=== PATIENT | female | born 1990 | race American Indian/Alaskan Native ===

== ENCOUNTER 2018-04-23 16:55 | Emergency (ER) | payer BC, OTHER ==
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
--- NOTE | 2018-04-23 19:21 | XRay Report ---
FINAL REPORT PROCEDURE: Chest. TECHNIQUE: PA and lateral views. HISTORY: Chest wall pain. COMPARISON: No prior studies are available for comparison. FINDINGS: The heart and mediastinum appear normal. The lungs are clear and well expanded. There are no pleural effusions. The soft tissues and regional skeleton are unremarkable. IMPRESSION: Normal study.
--- NOTE | 2018-04-23 19:28 | XRay Report ---
FINAL REPORT PROCEDURE: Left forearm. TECHNIQUE: AP and lateral views. HISTORY: Left forearm pain. COMPARISON: No prior studies are available for comparison. FINDINGS: The bones appear intact without fracture or dislocation. The joint spaces appear normal. The soft tissues are unremarkable. There is no evidence of an elbow effusion. IMPRESSION: Normal study.
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
[2018-04-23] MEDS ORDERED: MOTRIN PO ONE (21:22)
[2018-04-23] MEDS ORDERED: THERMAZENE 50 GRAM TP ONE ×3 (21:34→22:46)
[2018-04-23 22:49] VITALS: BP 124/74
== END 2018-04-23 21:45 | disposition home or self-care (01) ==
LOC: ED 16:55
DX: S40.022A Contusion of left upper arm, initial encounter (principal); J45.909 Unspecified asthma, uncomplicated; V49.59XA Passenger injured in collision with other motor vehicles in traffic accident, initial encounter; W22.12XA Striking against or struck by front passenger side automobile airbag, initial encounter; Y93.89 Activity, other specified; Y99.8 Other external cause status; Y92.488 Other paved roadways as the place of occurrence of the external cause
CPT/HCPCS: 71046; 93005; 93010

== ENCOUNTER 2021-04-03 04:09 | Inpatient (IN) | payer OTHER ==
--- NOTE | 2021-04-03 05:38 | History and Physical Report ---
History of Present Illness Date of examination: 04/03/21 Date of admission: 04/03/2021 Chief complaint: Pt with c/o regular contractions since 0100 this am; denies all other complaints and denies medical history History of present illness: EDC Confirmation: 04/15/2021 Past History : 4 Term Births: 3 Premature Births: 0 Living Children: 3 Para: 3 Mult. Births: 0 Prev : 0 Aborta: 0 Elect. Ab: 0 Spont. Ab: 0 Ectopics: 0 # 1 Delivery date: 2013 Weeks Gestation: term labor: no Delivery type: Anesthesia type: none Delivery location: [facility] [place] Infant Sex: Female weight: 6-7 # 2 Delivery date: 2017 Weeks Gestation: term labor: no Delivery type: Anesthesia type: none Delivery location: [facility] Infant Sex: Female weight: 6-5 # 3 Delivery date: 2018 Weeks Gestation: term labor: no Delivery type: Anesthesia type: epidural Delivery location: [facility] Infant Sex: Male weight: 6-7 Past Medical History: Reviewed history and no changes required: Negative Past Medical History Past Surgical History: Reviewed history and no changes required: negative Past Medical History Anesthesia Complications: negative Anemia: negative Autoimmune Disorder: negative Bleeding Disorder: negative Blood Transfusions: negative Breast Disease: negative Diabetes: negative Heart Disease: negative Hypertension: negative Hepatitis/Liver Disease: negative Kidney Disease/UTI: negative Neurologic/Epilepsy/Migraines: negative Phlebitis/Varicosities: negative Psychiatric: negative Pulmonary Disease/Asthma: negative Thyroid Disease: negative Hospitalizations: negative Surgery (Non-project analyst): negative Abnormal PAP: negative IQRA Exposure: negative Infertility: negative Uterine Anomaly: negative Uterine Surgery (not C/S): negative Other Gynecologic Problems: negative Infection History Hx of STD: none HIV Risk Eval: no Hepatitis B Risk Eval: low risk Personal hx. of genital herpes: no Partner hx. of genital herpes: no Rash, Viral, or Febrile illness since last LMP? no TB Risk: no Genetic History Congenital Heart Defect: Mom: no Dad: no Castro Disease: Mom: no Dad: no Thalassemia Mom: no Dad: no Neural Tube Defect Mom: no Dad: no Down's Syndrome Mom: no Dad: no David-Sachs Mom: no Dad: no Sickle Cell Disease/Trait Mom: no Dad: no Hemophilia Mom: no Dad: no Muscular Dystrophy Mom: no Dad: no Cystic Fibrosis Mom: no Dad: no Julio Chorea Mom: no Dad: no Mental Retardation Mom: no Dad: no Fragile X Mom: no Dad: no Other Genetic/Chromosomal Disorder Mom: no Dad: no Child w/other defect Mom: no Dad: no Enviromental Exposures Enviromental Exposures Reviewed Xray Exposure: no Medication, drug, or alcohol use since LMP: no Chemical/Other Exposure: no Exposure to Cat Liter: no Hx of Parvovirus (Fifth Disease): no Occupational Exposure to Children: none Active Medications (reviewed today): ONDANSETRON 8 MG ORAL TABLET DISINTEGRATING (ONDANSETRON) 1po q12h prn PNV () Current Allergies (reviewed today): No known allergies Past History Past Medical History: no pertinent history, other (see HPI) Past Surgical History: no surgical history Family/Genetic History: none Social history: no significant social history - Obstetrical History Expected Date of Delivery: 04/15/21 Actual Gestation: 38 Week(s) 2 Day(s) : 4 Para: 3 Hx # Term Pregnancies: 3 Number of Pregnancies: 0 Spontaneous Abortions: 0 Induced : 0 Number of Living Children: 3 #1 Gender: Female year: 2,[birth year] Birthweight: 6 lb Method of Delivery: Vaginal Gestational age at delivery: 40 Complications: none #2 Gender: Female year: 2,017 Birthweight: 6 lb Method of Delivery: Vaginal Gestational age at delivery: 40 Complications: none #3 Gender: Male year: 2,018 Birthweight: 6 lb Method of Delivery: Vaginal Gestational age at delivery: 40 Complications: none Medications and Allergies Allergies Allergy/AdvReac Type Severity Reaction Status Date / Time No Known Allergies Allergy Verified 07/10/14 20:53 Home Medications Medication Instructions Recorded Confirmed Last Taken Type Amoxicillin/K Clav Tab [Augmentin 1 tab PO Q12HR #14 tab 11/02/15 Unknown Rx 875 mg] Ibuprofen [Motrin] 600 mg PO Q8H PRN #60 tablet 11/02/15 Unknown Rx traMADoL [Ultram] 50 mg PO Q6HR PRN #14 tablet 11/02/15 Unknown Rx Review of Systems All systems: negative Genitourinary: contractions, no vaginal bleeding, no leakage of fluid - Vital Signs Vital signs: Vital Signs Pulse BP 84 125/84 04/03/21 04:31 04/03/21 04:31 Temp Pulse Resp BP Pulse Ox 98.8 F 91 H 18 125/84 98 04/03/21 04:32 04/03/21 05:17 04/03/21 04:32 04/03/21 04:32 04/03/21 05:17 - Physical Exam Breasts: Positive: deferred Cardiovascular: Regular rate Abdomen: Positive: normal appearance, soft Genitourinary (Female): Positive: normal external genitalia, normal perenium Vulva: both: normal Vagina: Positive: normal moisture Uterus: Positive: normal size, normal contour Anus/Rectum: Positive: normal perianal skin Extremities: Positive: normal - Obstetrical FHR: auscultation normal, category 1 Uterine Contraction Monitor Mode: External Uterine Contraction Pattern: Regular Uterine Tone Measurement Phase: Contraction Results All other labs normal. 03/12/21 Tests: (1) Ct, Ng, Trich vag by MARCI ([id number]) Order Note: Clinical Information: SRC:VR SRC:UR Chlamydia by MARCI Negative Negative *1 Gonococcus by [facility] Negative Negative *2 Trich vag by [facility] Negative Negative *3 Tests: (2) Strep Gp B MARCI ([id number]) ! Strep Gp B [facility] Negative Negative *4 10/18/20 Profile: HBsAg Screen Negative Negative *1 RPR Non Reactive Non Reactive *2 Rubella Antibodies, IgG 3.63 index Immune >0.99 *3 Non-immune <0.90 Equivocal 0.90 - 0.99 Immune >0.99 ABO Grouping A *4 Rh Factor Positive *5 Please note: Prior records for this patient's ABO / Rh type are not available for additional verification. Antibody Screen Negative Negative *6 WBC 8.1 x10E3/uL 3.4-10.8 *7 RBC 4.66 x10E6/uL 3.77-5.28 *8 Hemoglobin 12.3 g/dL 11.1-15.9 *9 Hematocrit 38.1 % 34.0-46.6 *10 MCV 82 fL 79-97 *11 MCH [L] 26.4 pg 26.6-33.0 *12 MCHC 32.3 g/dL 31.5-35.7 *13 RDW 13.1 % 11.7-15.4 *14 Platelets 271 x10E3/uL 150-450 *15 Neutrophils 68 % Not Estab. *16 Lymphs 23 % Not Estab. *17 Monocytes 7 % Not Estab. *18 Eos 1 % Not Estab. *19 Basos 1 % Not Estab. *20 ! Immature Cells <No Reported Value> *21 Neutrophils (Absolute) 5.5 x10E3/uL 1.4-7.0 *22 Lymphs (Absolute) 1.9 x10E3/uL 0.7-3.1 *23 Monocytes(Absolute) 0.5 x10E3/uL 0.1-0.9 *24 Eos (Absolute) 0.1 x10E3/uL 0.0-0.4 *25 Baso (Absolute) 0.0 x10E3/uL 0.0-0.2 *26 ! Immature Granulocytes 0 % Not Estab. *27 ! Immature Grans (Abs) 0.0 x10E3/uL 0.0-0.1 *28 ! NRBC <No Reported Value> *29 Hematology Comments: <No Reported Value> *30 Tests: (2) HIV Ag/Ab with Reflex ([id number]) HIV Screen 4th Generation wRfx Non Reactive Non Reactive *31 Tests: (3) HCV Ab w/Rflx to Verification ([id number]) ! HCV Ab <0.1 s/co ratio 0.0-0.9 *32 Tests: (4) Comment: ([id number]) ! Comment: [facility] *33 Non reactive HCV antibody screen is consistent with no HCV infection, unless recent infection is suspected or other evidence exists to indicate HCV infection. Effective November 25, 2020 HCV Ab w/Rflx to Verification will be made non-orderable. [facility] offers order code [id number] HCV Antibody reflex to [facility]. Tests: (5) Urine Culture, Routine ([id number]) Urine Culture, Routine Final report *34 Tests: (6) Result ([id number]) ! Result 1 No growth *35 Assessment and Plan Admit to labor Pt may have epidural PRN Anticipate - Patient Problems (1) Active labor Current Visit: Yes Status: Acute (2) 38 weeks gestation of Current Visit: Yes Status: Acute
[2021-04-03] MEDS ORDERED: BUTORPHANOL 2 MG/1 ML INJ IV PRN (05:50)
[2021-04-03] MEDS ORDERED: LIDOCAINE (2%) 20 MG/1 ML VIAL 20 ML MDV INFILTRATI ONE (05:50)
[2021-04-03] MEDS ORDERED: ePHEDrine SULFATE 50 MG/1 ML INJ IV PRN (05:50)
[2021-04-03] MEDS ORDERED: MINERAL OIL 30 ML ORAL LIQD PO PRN (05:50)
[2021-04-03] MEDS ORDERED: TERBUTALINE 1 MG/1 ML INJ SUB-Q PRN (05:50)
[2021-04-03] MEDS ORDERED: ONDANSETRON 4 MG/2 ML INJ IV PRN ×2 (05:50→14:52)
[2021-04-03] MEDS ORDERED: fentaNYL 100 MCG/2 ML INJ IV PRN (05:50)
[2021-04-03] MEDS ORDERED: OXYTOCIN DRIP 30 UNITS/500 ML BAG IV SCH ×2 (06:00→08:00)
[2021-04-03 08:19] LABS: Hematocrit 33.7 % (30.3-42.9); Hemoglobin 11.1 gm/dl (10.1-14.3); Mean Corpuscular HGB Conc 33 % (30-34); Mean Corpuscular Volume 76 fl (79-97); Platelet Count 245 K/mm3 (140-440); Red Blood Count 4.43 M/mm3 (3.65-5.03); Red Cell Distribution Width 14.9 % (13.2-15.2)
[2021-04-03] MEDS: LACTATED RINGERS 1,000 ML IV SCH ×2 (09:10→11:06)
[2021-04-03] MEDS ORDERED: NALOXONE 2 MG/2 ML INJ IV PRN (10:32)
--- NOTE | 2021-04-03 10:33 | Anesthesia Consultation ---
Anesthesia Consult and Med Hx Date of service: 04/03/21 - Airway Anesthetic Teeth Evaluation: Good ROM Head & Neck: Adequate Mental/Hyoid Distance: Adequate Mallampati Class: Class II Intubation Access Assessment: Probably Good - Pulmonary Exam CTA: Yes - Cardiac Exam Cardiac Exam: RRR - Pre-Operative Health Status ASA Pre-Surgery Classification: ASA2 Proposed Anesthetic Plan: Epidural - Pulmonary Hx Asthma: Yes (last as a child) - Cardiovascular System Hx Hypertension: No - Central Nervous System Hx Seizures: No Hx Psychiatric Problems: Yes (Bipolar) - Endocrine Hx Renal Disease: No Hx Hypothyroidism: No Hx Hyperthyroidism: No - Hematic Hx Anemia: No Hx Sickle Cell Disease: No - Other Systems Hx Alcohol Use: (not since )
--- NOTE | 2021-04-03 10:34 | Progress Note ---
Labor Epidural - Labor Epidural Start Time: 10:18 Stop Time: 10:28 Performed by:: RONNIE RODRIGUEZ Procedure: Patient is requesting epidural for labor pain. H&P, and labs reviewed. Procedure explained, questions answered, consent obtained. Patient in sitting position with blood pressure cuff and pulse ox on and working. Timeout performed immediately before start of procedure. Sterile chlorahexadine 0.5% prep/drape. 3 mL 1% lidocaine skin wheal at L[3]-L[4]. 18-gauge Club Venittead epidural needle advanced to [id number] with saline at [7] cm. Epidural catheter advanced to [12] cm, negative aspiration for blood and csf, negative test dose 3 ml 1.5% lidocaine with epinephrine. Epidural dexmedetomidine [30] mcg administered. Sterile steri-strips and tegaderm applied, followed by tape reinforcement. Patient tolerated procedure well. Ronnie MARQUEZ
[2021-04-03] MEDS: ePHEDrine SULFATE 50 MG/1 ML INJ IV PRN ×2 (10:52→11:07)
[2021-04-03] MEDS ORDERED: fentaNYL-BUPIV 2 MCG/ML-0.125% 200 MCG/100 ML BAG EPIDURAL SCH (11:00)
--- NOTE | 2021-04-03 12:19 | Progress Note ---
Assessment and Plan Patient is comfortable with epidural, SVE now /-1. Cephalic, AROM mod clear fluid, IUPC placed without difficulty. RN to continue titrating pitocin for adequate labor. pelvis feels adequate for size. Anticipate . - Patient Problems (1) 38 weeks gestation of Current Visit: Yes Status: Acute (2) Active labor Current Visit: Yes Status: Acute Subjective - Subjective Date of service: 04/03/21 Principal diagnosis: IUP @ 38+2 weeks; labor Patient reports: no new complaints (comfortable s/p epidural) Objective - Vital Signs Vital Signs: Vital Signs - 12hr 04/03/21 04/03/21 04/03/21 04:31 04:32 04:37 Temperature 98.8 F Pulse Rate 84 84 84 Respiratory 18 Rate Blood Pressure 125/84 Blood Pressure 125/84 [Right] O2 Sat by Pulse 99 98 Oximetry 04/03/21 04/03/21 04/03/21 04:42 04:47 04:52 Temperature Pulse Rate 82 86 80 Respiratory Rate Blood Pressure Blood Pressure [Right] O2 Sat by Pulse 99 99 98 Oximetry 04/03/21 04/03/21 04/03/21 04:57 05:02 05:07 Temperature Pulse Rate 81 74 89 Respiratory Rate Blood Pressure Blood Pressure [Right] O2 Sat by Pulse 98 98 98 Oximetry 04/03/21 04/03/21 04/03/21 05:12 05:17 06:24 Temperature Pulse Rate 89 91 H 101 H Respiratory Rate Blood Pressure Blood Pressure [Right] O2 Sat by Pulse 98 98 100 Oximetry 04/03/21 04/03/21 04/03/21 06:29 06:34 07:39 Temperature Pulse Rate 103 H 105 H 93 H Respiratory Rate Blood Pressure Blood Pressure [Right] O2 Sat by Pulse 98 98 100 Oximetry 04/03/21 04/03/21 04/03/21 07:44 07:49 07:54 Temperature Pulse Rate 79 73 94 H Respiratory Rate Blood Pressure Blood Pressure [Right] O2 Sat by Pulse 98 97 98 Oximetry 04/03/21 04/03/21 04/03/21 07:59 08:04 08:09 Temperature Pulse Rate 103 H 94 H 89 Respiratory Rate Blood Pressure Blood Pressure [Right] O2 Sat by Pulse 99 97 98 Oximetry 04/03/21 04/03/21 04/03/21 08:14 08:19 08:22 Temperature 98.1 F Pulse Rate 88 84 90 Respiratory 18 Rate Blood Pressure Blood Pressure 115/75 [Right] O2 Sat by Pulse 97 98 Oximetry 04/03/21 04/03/21 04/03/21 08:24 08:26 08:29 Temperature Pulse Rate 89 98 H 101 H Respiratory Rate Blood Pressure 115/75 Blood Pressure [Right] O2 Sat by Pulse 97 99 Oximetry 04/03/21 04/03/21 04/03/21 08:34 08:39 08:44 Temperature Pulse Rate 91 H 90 76 Respiratory Rate Blood Pressure Blood Pressure [Right] O2 Sat by Pulse 98 97 98 Oximetry 04/03/21 04/03/21 04/03/21 08:49 08:54 08:59 Temperature Pulse Rate 85 80 92 H Respiratory Rate Blood Pressure Blood Pressure [Right] O2 Sat by Pulse 97 97 98 Oximetry 04/03/21 04/03/21 04/03/21 09:04 09:09 09:14 Temperature Pulse Rate 86 90 82 Respiratory Rate Blood Pressure Blood Pressure [Right] O2 Sat by Pulse 98 98 98 Oximetry 04/03/21 04/03/21 04/03/21 09:19 09:24 09:26 Temperature Pulse Rate 91 H 65 74 Respiratory Rate Blood Pressure 113/72 Blood Pressure [Right] O2 Sat by Pulse 99 100 Oximetry 04/03/21 04/03/21 04/03/21 09:29 09:34 09:39 Temperature Pulse Rate 75 74 82 Respiratory Rate Blood Pressure Blood Pressure [Right] O2 Sat by Pulse 99 100 99 Oximetry 04/03/21 04/03/21 04/03/21 09:44 09:49 09:54 Temperature Pulse Rate 89 83 85 Respiratory Rate Blood Pressure Blood Pressure [Right] O2 Sat by Pulse 99 99 99 Oximetry 04/03/21 04/03/21 04/03/21 09:59 10:04 10:09 Temperature Pulse Rate 79 81 103 H Respiratory Rate Blood Pressure Blood Pressure [Right] O2 Sat by Pulse 99 99 99 Oximetry 04/03/21 04/03/21 04/03/21 10:17 10:19 10:21 Temperature Pulse Rate 85 75 91 H Respiratory Rate Blood Pressure 122/73 118/73 123/61 Blood Pressure [Right] O2 Sat by Pulse 99 Oximetry 04/03/21 04/03/21 04/03/21 10:22 10:23 10:25 Temperature Pulse Rate 105 H 96 H 94 H Respiratory Rate Blood Pressure 111/58 111/57 Blood Pressure [Right] O2 Sat by Pulse 99 Oximetry 04/03/21 04/03/21 04/03/21 10:27 10:29 10:31 Temperature Pulse Rate 90 94 H 90 Respiratory Rate Blood Pressure 111/56 112/83 117/67 Blood Pressure [Right] O2 Sat by Pulse 99 Oximetry 04/03/21 04/03/21 04/03/21 10:32 10:33 10:35 Temperature Pulse Rate 110 H 76 85 Respiratory Rate Blood Pressure 120/61 121/71 Blood Pressure [Right] O2 Sat by Pulse 98 Oximetry 04/03/21 04/03/21 04/03/21 10:37 10:39 10:41 Temperature Pulse Rate 106 H 100 H 101 H Respiratory Rate Blood Pressure 124/76 112/66 109/65 Blood Pressure [Right] O2 Sat by Pulse 99 Oximetry 04/03/21 04/03/21 04/03/21 10:42 10:44 10:46 Temperature Pulse Rate 112 H 83 96 H Respiratory Rate Blood Pressure 106/51 123/61 Blood Pressure [Right] O2 Sat by Pulse 99 Oximetry 04/03/21 04/03/21 04/03/21 10:47 10:49 10:52 Temperature Pulse Rate 118 H 90 118 H Respiratory Rate Blood Pressure 99/52 79/40 Blood Pressure [Right] O2 Sat by Pulse 99 100 Oximetry 04/03/21 04/03/21 04/03/21 10:53 10:55 10:57 Temperature Pulse Rate 80 69 93 H Respiratory Rate Blood Pressure 113/59 119/69 120/70 Blood Pressure [Right] O2 Sat by Pulse 98 Oximetry 04/03/21 04/03/21 04/03/21 10:59 11:01 11:03 Temperature Pulse Rate 114 H 113 H 93 H Respiratory Rate Blood Pressure 114/64 106/58 107/58 Blood Pressure [Right] O2 Sat by Pulse Oximetry 04/03/21 04/03/21 04/03/21 11:05 11:07 11:09 Temperature Pulse Rate 109 H 97 H 107 H Respiratory Rate Blood Pressure 99/56 84/47 98/53 Blood Pressure [Right] O2 Sat by Pulse Oximetry 04/03/21 04/03/21 04/03/21 11:12 11:13 11:15 Temperature Pulse Rate 75 67 84 Respiratory Rate Blood Pressure 132/70 120/57 111/58 Blood Pressure [Right] O2 Sat by Pulse Oximetry 04/03/21 04/03/21 04/03/21 11:21 11:26 11:31 Temperature Pulse Rate 65 78 90 Respiratory Rate Blood Pressure 115/62 108/56 105/56 Blood Pressure [Right] O2 Sat by Pulse Oximetry 04/03/21 04/03/21 04/03/21 11:36 11:41 11:46 Temperature Pulse Rate 71 72 76 Respiratory Rate Blood Pressure 105/57 108/59 100/58 Blood Pressure [Right] O2 Sat by Pulse Oximetry 04/03/21 04/03/21 04/03/21 11:51 11:56 12:01 Temperature Pulse Rate 86 80 68 Respiratory Rate Blood Pressure 102/60 104/59 102/55 Blood Pressure [Right] O2 Sat by Pulse Oximetry 04/03/21 04/03/21 12:06 12:11 Temperature Pulse Rate 80 86 Respiratory Rate Blood Pressure 107/61 112/64 Blood Pressure [Right] O2 Sat by Pulse Oximetry - Exam Breasts: normal Cardiovascular: Regular rate Lungs: Normal air movement Abdomen: Present: normal appearance, soft Vulva: both: normal Uterus: Present: normal, fundal height above umbilicus FHR: auscultation normal, category 1 Uterine Contraction Monitor Mode: Internal Cervical Dilatation: 4 (AROM clear - vertex) Cervical Effacement Percentage: 70 station: -1 Uterine Contraction Frequency (min): 3-5 Uterine Contraction Duration: 60 Uterine Contraction Pattern: Regular Uterine Tone Measurement Phase: Contraction Uterine Contraction Intensity: Mild Extremities: normal Deep Tendon Reflex Grade: Normal +2 - Labs Labs: Abnormal Labs 04/03/21 07:24 MCV 76 L MCH 25 L Laboratory Results - last 24 hr 04/03/21 04/03/21 07:24 07:31 WBC 7.1 RBC 4.43 Hgb 11.1 Hct 33.7 MCV 76 L MCH 25 L MCHC 33 RDW 14.9 Plt Count 245 Blood Type A POSITIVE Antibody Screen Negative
--- NOTE | 2021-04-03 14:22 | Procedure Note ---
OB Delivery Note - Delivery Date of Delivery: 04/03/21 ( Female ) Director Customer: THIERNO COSTELLO Estimated blood loss: 100cc - Vaginal Delivery presentation: vertex Delivery position: OA (LILIAM) Intrapartum events: none Delivery induction: none Delivery augmentation: rupture of membranes, pitocin Delivery monitor: external FHT, internal uterine Route of delivery: Delivery placenta: spontaneous Delivery cord: 3 umbilical vessels Episiotomy: none Delivery laceration: none Anesthesia: epidural - Infant A at 1 minute: 8 at 5 minutes: 9 Gender: Female (5#15oz)
[2021-04-03] MEDS ORDERED: MAGNESIUM HYDROXIDE (MOM) ORAL LIQD UDC PO PRN (14:52)
[2021-04-03] MEDS ORDERED: METHYLERGONOVINE MALEATE 0.2 MG/ML VIAL IM PRN (14:52)
[2021-04-03] MEDS ORDERED: WITCH HAZEL/ GLYCERIN PAD TP PRN (14:52)
[2021-04-03] MEDS ORDERED: BENZOCAINE/MENTHOL 20/0.5% TOP SPRAY 56 GM TP PRN (14:52)
[2021-04-03] MEDS ORDERED: PROMETHAZINE 25 MG TAB PO PRN (14:52)
[2021-04-03] MEDS ORDERED: miSOPROStol 100 MCG TAB PR PRN (14:52)
[2021-04-03] MEDS ORDERED: PROMETHAZINE 25 MG RECT SUPP PR PRN (14:52)
[2021-04-03] MEDS ORDERED: LANOLIN/ZINC/DIMETHICONE (LANSINOH) 7 GM TP PRN ×2 (14:52)
[2021-04-03] MEDS ORDERED: CARBOPROST TROMETHAMINE 250 MCG/1 ML INJ IM PRN (14:52)
[2021-04-03] MEDS ORDERED: diphenhydrAMINE 25 MG CAP PO PRN (14:52)
[2021-04-03] MEDS ORDERED: ACETAMINOPHEN 325 MG TAB PO PRN (14:52)
[2021-04-03] MEDS: IBUPROFEN 800 MG TAB PO SCH (18:24)
[2021-04-04] MEDS: IBUPROFEN 800 MG TAB PO SCH ×2 (00:21→06:03)
[2021-04-04] MEDS: FERROUS SULFATE 325 MG TAB PO SCH ×3 (00:21→21:41)
[2021-04-04 02:26] LABS: Hematocrit 29.9 % (30.3-42.9); Hemoglobin 9.7 gm/dl (10.1-14.3)
[2021-04-04] MEDS ORDERED: TETANUS,DIPH,PERTUSS(ACELL) VACCINE 0.5 ML SYRINGE IM ONE (06:00)
--- NOTE | 2021-04-04 08:16 | Post Anesthesia Evaluation ---
- Post Anesthesia Evaluation Patient Participated: Yes Airway Patent: Yes Stable Respiratory Function: Yes Nausea/Vomiting: No Temp > 96.8F: Yes Pain Manageable: Yes Adequeate Hydration: Yes Anesthesia Complications: No Block Receding Appropriately: Yes
--- NOTE | 2021-04-04 08:54 | Discharge Summary ---
Providers - Providers Date of Admission: 04/03/21 05:51 Date of discharge: 04/04/21 (pt desires discharge home today) Attending physician: SONYA BABIN 04/03/21 14:52 Consult to Assembler Adjuster [CONS] Routine Reason For Exam: assistance with , SNS Primary care physician: SONYA BABIN Hospitalization Reason for admission: active labor, IUP at term Delivery: Episiotomy: none Laceration: none Other procedures: none complications: none Discharge diagnosis: IUP at term delivered baby: female Condition at discharge: Good Disposition: DC-01 TO HOME OR SELFCARE - Discharge Diagnoses (1) (normal spontaneous vaginal delivery) Status: Acute Plan - Provider Discharge Summary Activity: routine, no sex for 6 weeks, no heavy lifting 4 weeks, no strenuous exercise Diet: routine Instructions: routine Additional instructions: [] Smoking cessation referral if applicable(refer to patient education folder for contact #) [] Refer to [facility]'s [facility] Booklet Call your doctor immediately for: * Fever > 100.5 * Heavy vaginal bleeding ( >1 pad per hour) * Severe persistent headache * Shortness of breath * Reddened, hot, painful area to leg or breast * Drainage or odor from incision. * Keep incision clean and dry at all times and follow doctor's instructions regarding bathing/showering Congratulations!! Please call [phone] and schedule your visit for 4-6 weeks. - Follow up plan Follow up: SONYA BABIN MD [Primary Care Provider] - 6 Weeks
[2021-04-04] MEDS: IBUPROFEN ORAL LIQD 100 MG/5 ML ORAL.LIQD PO SCH ×2 (09:22→21:41)
[2021-04-04] MEDS ORDERED: PRENATAL VIT27-FE FUMARATE-FOLIC ACID VIT TAB PO SCH (10:00)
[2021-04-04 17:10] VITALS: BP 118/66
== END 2021-04-04 23:30 | disposition home or self-care (01) | DRG 775 ==
LOC: TRG 04:09 → APU 04:17 → TRG 05:50 → LD 05:51 → OB 18:03
PROVIDERS: ADMIT Obstetrics & Gynecology; ATTEND Obstetrics & Gynecology
PROC: 10E0XZZ Delivery of Products of Conception, External Approach (ICD-10-PCS; principal; 2021-04-03)
PROC: 10H07YZ Insertion of Other Device into Products of Conception, Via Natural or Artificial Opening (ICD-10-PCS; 2021-04-03)
PROC: 3E0R3BZ Introduction of Anesthetic Agent into Spinal Canal, Percutaneous Approach (ICD-10-PCS; 2021-04-03)
PROC: 00HU33Z Insertion of Infusion Device into Spinal Canal, Percutaneous Approach (ICD-10-PCS; 2021-04-03)
PROC: 10907ZC Drainage of Amniotic Fluid, Therapeutic from Products of Conception, Via Natural or Artificial Opening (ICD-10-PCS; 2021-04-03)
PROC: 3E0234Z Introduction of Serum, Toxoid and Vaccine into Muscle, Percutaneous Approach (ICD-10-PCS; 2021-04-04)
DX: O99.52 Diseases of the respiratory system complicating childbirth (principal); Z37.0 Single live birth; Z3A.38 38 weeks gestation of pregnancy; J45.909 Unspecified asthma, uncomplicated; O99.344 Other mental disorders complicating childbirth; F31.9 Bipolar disorder, unspecified; Z23 Encounter for immunization; Z20.822 Contact with and (suspected) exposure to COVID-19
CPT/HCPCS: 36415; 59025; 85014; 85018; 85027; 86850; 86900; 86901; 90471; 90715; 96360; 96374; 96376; 99211; G0378; G0463; J2590; J7120; U0003